=== PATIENT | male | born 1985 | race Caucasian/White ===

== ENCOUNTER 2020-12-26 19:01 | Emergency (ER) | payer OTHER ==
[~2020-12-26] VITALS: Ht 180.3 cm; Wt 109.1 kg
[2020-12-26 19:40] VITALS: BP 118/87
[2020-12-26] MEDS ORDERED: COLC0.6T73 PO (19:43)
[2020-12-26] MEDS ORDERED: CLON0.1T2 PO (19:43)
[2020-12-26] MEDS ORDERED: BUPR1FIL SL (19:43)
[2020-12-26] MEDS ORDERED: DIPH-1080 PO (19:43)
[2020-12-26] MEDS ORDERED: MORPHINE SULFATE 2 MG/ML SYRINGE IVP ONE (19:45)
[2020-12-26] MEDS ORDERED: KETOROLAC TROMETHAMINE 30 MG/ML VIAL IVP ONE (19:45)
[2020-12-26] MEDS ORDERED: ONDANSETRON HCL 4 MG/2 ML VIAL IVP ONE (19:45)
== END 2020-12-26 22:04 | disposition home or self-care (01) ==
LOC: EMS 19:01
DX: S83.91XA Sprain of unspecified site of right knee, initial encounter (principal); S46.912A Strain of unspecified muscle, fascia and tendon at shoulder and upper arm level, left arm, initial encounter; Z88.0 Allergy status to penicillin; W20.8XXA Other cause of strike by thrown, projected or falling object, initial encounter; Y93.89 Activity, other specified; Y92.89 Other specified places as the place of occurrence of the external cause; Y99.8 Other external cause status
CPT/HCPCS: 29505; 73030; 73562; 73630; 96374; 96375; 99284; J1885; J2270; J2405; 29240